=== PATIENT | male | born 1955 | race Caucasian/White ===

== ENCOUNTER → 2017-05-01 | Outpatient (CLI) | payer OTHER ==
[2017-05-01 17:36] LABS: HEMATOCRIT 43.8 % (42-52); MEAN CELL VOLUME 86.7 fL (80-100); MEAN CORPUSCULAR HEMOGLOBIN 30.7 pg (25-34); MEAN CORPUSCULAR HGB CONC 35.4 g/dl (32-36); MEAN PLATELET VOLUME 10.4 fL (7.4-10.4); PLATELET COUNT 228 K/uL (130-400); RED BLOOD COUNT 5.05 M/uL (4.7-6.1)
[2017-05-01 17:45] LABS: ALT/SGPT 39 U/L (12-78); BLOOD UREA NITROGEN 13 mg/dl (7-18); BUN/CREATININE RATIO 13.2 (10-20); CALCIUM 9.1 mg/dl (8.5-10.1); CARBON DIOXIDE 24 mmol/L (21-32); CHLORIDE 106 mmol/L (98-107); CHOLESTEROL 230 mg/dl (0-200); CREATININE 0.95 mg/dl (0.60-1.40); GLUCOSE 88 mg/dl (70-99); POTASSIUM 3.9 mmol/L (3.5-5.1); SODIUM 140 mmol/L (136-145)
[2017-05-01 17:50] LABS: ALKALINE PHOSPHATASE 94 U/L (45-117); AST/SGOT 38 U/L (15-37); CHOLESTEROL/HDL RATIO 3.1; HDL CHOLESTEROL 74 mg/dl; LDL CHOLESTEROL CALCULATED 141 mg/dl; TRIGLYCERIDES 74 mg/dl (0-150); VERY LOW DENSITY LIPOPROT CALC 15 mg/dl
== END | disposition home or self-care (01) ==
LOC: C.LAB1850 16:34
PROVIDERS: ATTEND Internal Medicine
DX: Z13.1 Encounter for screening for diabetes mellitus (principal); E80.4 Gilbert syndrome; R97.20 Elevated prostate specific antigen [PSA]; E78.5 Hyperlipidemia, unspecified; R51 Headache; Z11.59 Encounter for screening for other viral diseases

== ENCOUNTER → 2017-06-30 | Outpatient (CLI) | payer OTHER ==
[2017-06-30 17:04] LABS: PROSTATE SPECIFIC ANTIGEN 4.38 ng/ml (0.000-4.000)
== END | disposition home or self-care (01) ==
LOC: C.LAB1850 15:20
PROVIDERS: ATTEND Internal Medicine
DX: R97.20 Elevated prostate specific antigen [PSA] (principal); E80.4 Gilbert syndrome

== ENCOUNTER 2017-07-14 07:57 | Inpatient (IN) | payer OTHER ==
[2017-07-08 11:48] VITALS: BMI 27.0
[~2017-07-14] VITALS: Ht 182.9 cm; Wt 90.9 kg
--- NOTE | 2017-07-14 08:49 | Endo History and Physical ---
History & Physical Date of Service: Jul 14, 2017. Chief Complaint: History of polyps Referring Physician: History of Present Illness 61 yo CM who presents for colonoscopy secondary to history of colon polyps. Past Surgical History Hx Cardiac Surgery: No Hx Internal Defibrillator: No Hx Pacemaker: No Hx Abdominal Surgery: No Hx of Implantable Prosthesis: No Hx Post-Op Nausea and Vomiting: No Hx Cancer Surgery: No Hx Thoracic Surgery: No Hx Orthopedic: Yes (SHOULDER LIPOMA REMOVAL, LEFT HEEL SURGERY) Hx Urinary Tract Surgery: No Family History None Social History Smoking Status: Never Smoker Hx Substance Use: No Hx Alcohol Use: Yes (OCCASIONALLY) Allergies Coded Allergies: No Known Allergies (Unverified , 07/08/17) Current Medications Reported Home Medications Medications Dose Route/Sig Max Daily Dose Days Date Category No Active Prescriptions or Reported Medications Rx Vital Signs Weight (Kilograms): 90.91 Height (Feet): 6 Height (Inches): 0 Date Time Temp Pulse Resp B/P (MAP) Pulse Ox O2 Delivery O2 Flow Rate FiO2 07/14/17 08:20 36.7 67 16 131/89 (103) 97 Room Air Physical Exam General Appearance: WD/WN, no apparent distress Respiratory/Chest: Auscultation: breath sounds normal Cardiovascular: Heart Auscultation: RRR Abdomen: Bowel Sounds: normal Inspection & Palpation: soft, non-distended, no tenderness, guarding & rebound Assessment and Plan Assessment: 61 yo CM who presents for colonoscopy secondary to history of colon polyps. Plan: Proceed with colonoscopy.
--- NOTE | 2017-07-14 10:10 | Anesthesiology Progress Note ---
Anesthesia Post Op Note Date & Time Jul 14, 2017 at 10:09 Vital Signs Pain Intensity: 0 Vital Signs Past 12 Hours Date Time Temp Pulse Resp B/P (MAP) Pulse Ox O2 Delivery O2 Flow Rate FiO2 07/14/17 09:51 59 20 111/80 (90) 97 Room Air 07/14/17 08:20 36.7 67 16 131/89 (103) 97 Room Air Notes Mental Status: alert / awake / arousable, participated in evaluation Pt Amnestic to Procedure: Yes Nausea / Vomiting: adequately controlled Pain: adequately controlled Airway Patency, RR, SpO2: stable & adequate BP & HR: stable & adequate Hydration State: stable & adequate Anesthetic Complications: no major complications apparent Dr Roberts felt he may have had a small perforation - clips were placed on it and Dr Sommers aware - will be admitted for observation.
[2017-07-14] MEDS ORDERED: PIPERACILL/TAZOBAC IV 3.375 GM in DEXTROSE 5% 100ML 100 ML IV ONE (10:15)
[2017-07-14] MEDS ORDERED: PIPERACILL/TAZOBAC CONSULT ACTIVE PRN (10:15)
[2017-07-14] MEDS ORDERED: ONDANSETRON INJ 2 MG/ML 2 ML VIAL IV PRN (10:30)
--- NOTE | 2017-07-14 10:40 | History and Physical ---
History & Physical Date & Time of Service: Jul 14, 2017 at 10:31 Chief Complaint: Tubular Adenoma Of Colon, Beeper 755 Primary Care Physician: Marshal Nix M.D. History of Present Illness Source: patient, hospital records 61 yo male here for routine colonoscopy. Prep went well. Dr. Roberts was passing through sigmoid colon when he though he saw a shear in the mucosa. Retracted scope and confirmed that there appeared to be a small defect, perhaps 5mm. Three clips placed over area. As mentioned above, prep was very good, very little fecal material in colon and Dr. Roberts feels there was no spillage of fecal material. After procedure completed, patient without any abdominal pain. Abdomen softly distended, likely from insufflation from colonoscopy. CT scan ordered and Zosyn ordered. Dr. Roberts discussed with general surgery and they will follow patient. Patient pleasant and comfortable, laying in bed. No distress. No complaints. Reports that he has no real medical issues other than pre-glaucoma. Takes no medications. Past Medical/Surgical History Pre glaucoma Family History no cancer HTN Social History Smoking Status: Never Smoker Alcohol Use: socially Drug Use: none Occupational Status: employed Allergies Coded Allergies: No Known Allergies (Unverified , 07/08/17) Home Medications No Active Prescriptions or Reported Meds Review of Systems Constitutional: No fever, No chills, No sweats, No weight loss, No weakness, No fatigue, No problem reported Eyes: No worsening of vision, No eye pain, No redness, No discharge, No diplopia, No problem reported ENT: No hearing loss, No unusual epistaxis, No nasal symptoms, No sore throat, No tinnitus, No dental problems, No trouble swallowing, No problem reported Respiratory: No cough, No sputum, No wheezing, No shortness of breath, No dyspnea on exertion, No dyspnea at rest, No hemoptysis, No problem reported Cardiovascular: No chest pain, No orthopnea, No PND, No edema, No claudication , No palpitations, No problem reported Abdomen: No pain, No nausea, No vomiting, No diarrhea, No constipation, No GI bleeding, No problem reported Musculoskeletal: No joint pain, No muscle pain, No swelling, No calf pain, No problem reported Genitourinary - Male: No hematuria, No dysuria, No urinary frequency, No urinary urgency Neurologic: No memory loss, No paralysis, No weakness, No numbness/tingling, No vertigo, No balance problems, No problem reported Psychiatric: No depression symptoms, No anhedonism, No anxiety, No insomnia, No substance abuse, No problem reported Endocrine: No fatigue, No excessive thirst, No excessive urination, No problem reported Hematologic / Lymphatic: No abnormal bleeding/bruising, No clotting problems, No swollen lymph nodes, No night sweats, No problem reported Integumentary: No rash, No itch, No new/changing skin lesions, No color change , No bleeding, No problem reported Allergic / Immunologic: No environmental allergies, No seasonal allergies, No pet sensitivities, No food allergies, No hives, No frequent infections, No poor healing, No prolonged convalescence, No problem reported Physical Exam Vital Signs Date Time Temp Pulse Resp B/P (MAP) Pulse Ox O2 Delivery O2 Flow Rate FiO2 07/14/17 10:21 60 20 131/87 (102) 98 Room Air 07/14/17 10:06 69 20 123/82 (96) 97 Room Air 07/14/17 09:51 59 20 111/80 (90) 97 Room Air 07/14/17 08:20 36.7 67 16 131/89 (103) 97 Room Air General Appearance: WD/WN, no apparent distress Head: normocephalic, atraumatic Eyes: normal inspection, EOMI, sclerae normal ENT: normal ENT inspection, hearing grossly normal, pharynx normal Neck: supple, no adenopathy, no JVD, trachea midline Respiratory/Chest: chest non-tender, lungs clear, normal breath sounds, no respiratory distress, no accessory muscle use Cardiovascular: regular rate, rhythm, no edema, no gallop, no JVD, no murmur, normal peripheral pulses Abdomen/GI: normal bowel sounds, non tender, soft, no organomegaly, + distended (minimally) Back: normal inspection, no CVA tenderness, no muscle spasm, normal range of motion Extremities/Musculoskelatal: normal inspection, no calf tenderness, normal capillary refill, no pedal edema, normal range of motion, pelvis stable Neurologic/Psych: compliance spec II-XII nml as tested, no motor/sensory deficits, alert, normal mood/affect, normal reflexes, oriented x 3 Skin: normal color, warm/dry, no rash Diagnostics Diagnostic Radiology CT ABDOMEN PELVIS WITHOUT CONTRAST IMPRESSION: 1. Multiple extraluminal gas bubbles within the abdomen, consistent with a perforation 2. Surgical clip within the sigmoid colon. There is minimal infiltration of the adjacent pericolonic fat. There are no fluid collections to indicate an abscess. 3. The findings were reviewed with Dr. Justin Roberts at 10:52 AM. Impression Assessment and Plan 61 yo male with sigmoid colon perforation with immediate treatment with three endoscopic clips - Sigmoid colon perforation NPO, Cipro/Flagyl IV CT shows scattered air bubbles in the peritoneum consistent with perforation admit to surgical floor, q4 hour vitals, serial abdominal exams consult general surgery to follow along in case he requires surgical intervention NSS at 100cc/hr DVT prophylaxis: Lovenox no other medical issues Level of Care Med/Surg Resuscitation Status FULL RESUSCITATION VTE Prophylaxis VTE Risk Assessment Done? Y/N: Yes Risk Level: Low Given or contraindicated: Enoxaparin (Lovenox)SQ Additional Copies To Armando, Justin Cárdenas D.O.; Pro,Marshal Contreras M.D.
--- NOTE | 2017-07-14 10:56 | DIAGNOSTIC IMAGING REPORT ---
CT SCAN OF THE ABDOMEN AND PELVIS WITHOUT CONTRAST CLINICAL HISTORY: Abdominal pain status post colonoscopy. Possible perforation. Tubular adenoma of the colon. COMPARISON STUDY: No previous studies for comparison. TECHNIQUE: CT scan of the abdomen and pelvis was performed from the lung bases to the proximal femurs. Images are reviewed in the axial, sagittal, and coronal planes. IV contrast was not administered for this examination. A dose lowering technique was utilized adhering to the principles of ALARA. CT DOSE: 1018.11 mGycm FINDINGS: Lower chest: There are mild bibasal atelectatic changes. Liver: The unenhanced liver is normal in size, contour, and attenuation. There is no intrahepatic biliary ductal dilatation. Gallbladder: Unremarkable. Spleen: Normal in size and attenuation. Pancreas: Unremarkable. Adrenal glands: Unremarkable. Kidneys: No renal calculi are visualized. There is a to small to characterize 5 mm exophytic left renal hypodensity likely representing a cyst. Bowel: There is a surgical clip within the sigmoid colon. There is minimal inflammatory stranding within the adjacent fat. There are multiple extraluminal gas bubbles, consistent with perforation. Peritoneum: There are multiple extraluminal gas bubbles within the abdomen, consistent with a perforation. There is no significant free fluid. There is a tiny fat-containing umbilical hernia. Vasculature: The abdominal aorta is normal in course and caliber. There is a retroaortic left renal vein. Adenopathy: None. Pelvic viscera: The bladder, and pelvic viscera are unremarkable. Skeletal structures: No destructive osseous lesions are seen. IMPRESSION: 1. Multiple extraluminal gas bubbles within the abdomen, consistent with a perforation 2. Surgical clip within the sigmoid colon. There is minimal infiltration of the adjacent pericolonic fat. There are no fluid collections to indicate an abscess. 3. The findings were reviewed with Dr. Justin Roberts at 10:52 AM. Electronically signed by: Jean De León M.D. 07/14/2017 10:55 AM Dictated Date/Time: 07/14/2017 10:47 AM
[2017-07-14] MEDS ORDERED: LIDOCAINE HCL 2% 2 ML VIAL (20MG/ML) ONE (11:25)
[2017-07-14] MEDS ORDERED: PROPOFOL IV EMULSION 10 MG/ML 20 ML VIAL IV ONE (11:25)
--- NOTE | 2017-07-14 11:25 | GASTROINTESTINAL CONSULTATION ---
DATE OF CONSULTATION: 07/14/2017 AGE: 61 SEX: Male. RACE: . I had the pleasure of seeing Santino Gonzalez today in the GI lab for a colonoscopy secondary to history of polyps. He was brought to the endoscopy suite and underwent an attempt at colonoscopy. The colonoscopy was aborted with passage of the scope to the sigmoid colon and evidence of possible scope-induced trauma with perforation. Endoclips x3 were placed to the area. The scope was removed from the patient. He was started on IV Zosyn therapy. I immediately contacted both Dr. Washington and the hospitalist team to admit the patient as well as Dr. Sommers of general surgery to alert them to the possible need for surgical intervention. He was also sent for a stat CT scan and was noted to have evidence of multiple extraluminal gas bubbles within the abdomen consistent with a perforation. There was a surgical clip noted in the sigmoid colon and there was minimal infiltration of the adjacent pericolonic fat. He subsequently will be admitted for further evaluation. He will be kept n.p.o. PHYSICAL EXAMINATION: Includes: VITAL SIGNS: Temperature 36.7, pulse 52, respirations 20, blood pressure 137/83, pulse ox 98% on room air. GENERAL: He is awake, cooperative in no acute distress. HEAD: Normocephalic, atraumatic. EYES: Pupils equally round. Extraocular muscles are intact. ENT: External evaluation of ears and nose are normal. Oropharynx is clear. NECK: Soft, supple. No JVD or lymphadenopathy. CHEST: Clear to auscultation bilaterally. ABDOMEN: Mildly tender in the left lower quadrant. Nondistended. There are positive bowel sounds. There is no hepatosplenomegaly or stigmata of chronic liver disease. EXTREMITIES: No clubbing, cyanosis or edema. IMPRESSION: A 61-year-old male status post attempted colonoscopy with sigmoid colon perforation secondary to scope trauma. PLAN: At the present time, I would recommend the patient be kept n.p.o. He will be on Zosyn 3.375 grams IV q. 8 hours. He will be admitted to the hospitalist service and we will monitor his clinical course. Dr. Sommers is aware and once again, thanks for allowing me to participate in the care of this patient. If you have any further questions, please do not hesitate in contacting me.
[2017-07-14 11:30] VITALS: BP 126/83; PULSE 56; TEMP 36.4; O2SAT 98; Ht 182.9 cm; Wt 90.9 kg
--- NOTE | 2017-07-14 11:47 | Surgery Consultation ---
Consultation Date of Consultation: Jul 14, 2017. Attending Physician: Levar Washington D.O. Reason for Consultation: Iatrogenic colon injury History of Present Illness 61-year-old male admitted with iatrogenic sigmoid colon injury during routine screening colonoscopy. He was undergoing colonoscopy today and it was noted that there was mucosal injury in the sigmoid colon that appeared to be full- thickness and was approximate 5 mm in size. This was closed with clips and his colonoscopy was aborted. His colon was well prepped per the report. This was not at the site of a large polyp or concerning mass. The patient remained stable throughout the case, and he had a CT scan performed which showed some air along the course of the colon sigmoid area along with metallic clips. It was no evidence of any free fluid. The patient was examined up on the floor after he recovered. He denies any abdominal pain, fevers, nausea or vomiting. The patient is otherwise healthy and is not on any steroids for autoimmune drugs. Past Medical/Surgical History Medical Problems: (1) Abnormal colonoscopy (2) Colon perforation (3) No pertinent past medical history Past Surgical History: Denies Family History Noncontributory Social History Smoking Status: Never Smoker Smokeless Tobacco Use: No Alcohol Use: socially Drug Use: none Occupation Status: employed Allergies Coded Allergies: No Known Allergies (Unverified , 07/08/17) Home Medications No Active Prescriptions or Reported Meds Current Inpatient Medications Current Inpatient Medications Medications (Trade) Dose Ordered Sig/Ramon Route Start Time Stop Time Status Last Admin Dose Admin Enoxaparin Sodium (Lovenox Inj) 40 mg Q24H SQ 07/14/17 10:30 08/13/17 10:29 UNV Ondansetron HCl (Zofran Inj) 4 mg Q6H PRN IV 07/14/17 10:30 08/13/17 10:29 UNV Ciprofloxacin/ Dextrose 400 mg/ Prmx 200 ml @ 100 mls/hr Q12 IV 07/14/17 21:00 07/24/17 20:59 UNV Metronidazole 500 mg/Prmx 100 ml @ 100 mls/hr Q8H IV 07/14/17 10:30 07/24/17 10:29 UNV Review of Systems 10 point review of systems was negative except as above Physical Exam Date Time Temp Pulse Resp B/P (MAP) Pulse Ox O2 Delivery O2 Flow Rate FiO2 07/14/17 10:55 52 20 137/83 (101) 98 Room Air 07/14/17 10:46 53 20 128/87 (101) 98 Room Air 07/14/17 10:21 60 20 131/87 (102) 98 Room Air 07/14/17 10:06 69 20 123/82 (96) 97 Room Air 07/14/17 09:51 59 20 111/80 (90) 97 Room Air 07/14/17 08:20 36.7 67 16 131/89 (103) 97 Room Air General Appearance: WD/WN, no apparent distress Head: normocephalic, atraumatic Eyes: normal inspection, PERRL, EOMI ENT: normal ENT inspection, hearing grossly normal Neck: supple, no adenopathy Respiratory/Chest: chest non-tender, lungs clear, normal breath sounds, no respiratory distress, no accessory muscle use Cardiovascular: regular rate, rhythm, no edema, no murmur, normal peripheral pulses Abdomen/GI: normal bowel sounds, non tender, soft, no organomegaly Back: normal inspection Extremities/Musculoskelatal: normal inspection, no calf tenderness 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 Possible perforation. Tubular adenoma of the colon. COMPARISON STUDY: No previous studies for comparison. TECHNIQUE: CT scan of the abdomen and pelvis was performed from the lung bases to the proximal femurs. Images are reviewed in the axial, sagittal, and coronal planes. IV contrast was not administered for this examination. A dose lowering technique was utilized adhering to the principles of ALARA. CT DOSE: 1018.11 mGycm FINDINGS: Lower chest: There are mild bibasal atelectatic changes. Liver: The unenhanced liver is normal in size, contour, and attenuation. There is no intrahepatic biliary ductal dilatation. Gallbladder: Unremarkable. Spleen: Normal in size and attenuation. Pancreas: Unremarkable. Adrenal glands: Unremarkable. Kidneys: No renal calculi are visualized. There is a to small to characterize 5 mm exophytic left renal hypodensity likely representing a cyst. Bowel: There is a surgical clip within the sigmoid colon. There is minimal inflammatory stranding within the adjacent fat. There are multiple extraluminal gas bubbles, consistent with perforation. Peritoneum: There are multiple extraluminal gas bubbles within the abdomen, consistent with a perforation. There is no significant free fluid. There is a tiny fat-containing umbilical hernia. Vasculature: The abdominal aorta is normal in course and caliber. There is a retroaortic left renal vein. Adenopathy: None. Pelvic viscera: The bladder, and pelvic viscera are unremarkable. Skeletal structures: No destructive osseous lesions are seen. IMPRESSION: 1. Multiple extraluminal gas bubbles within the abdomen, consistent with a perforation 2. Surgical clip within the sigmoid colon. There is minimal infiltration of the adjacent pericolonic fat. There are no fluid collections to indicate an abscess. 3. The findings were reviewed with Dr. Justin Roberts at 10:52 AM. Assessment & Plan 61-year-old male with iatrogenic sigmoid colon injury, controlled with clips. He is currently stable with a soft abdomen. Agree with antibiotics and nothing by mouth for now. Surgery will follow, recommend serial abdominal exams. NPO, IV fluids Agree with IV Zosyn Serial abdominal exams Surgery will continue to follow, please call with questions, concerns, or if clinical condition deteriorates The plan of care was discussed with the patient, all questions were answered, the patient expressed understanding and agrees with the plan of care as stated
--- NOTE | 2017-07-14 12:00 | GI REPORT ---
Procedure Date: 07/14/2017 8:46 AM Procedure: Colonoscopy Indications: High risk colon cancer surveillance: Personal history of colonic polyps Medicines: Monitored Anesthesia Care Complications: Perforation Estimated Blood Loss: Estimated blood loss: none. Estimated blood loss was minimal. Procedure: Pre-Anesthesia Assessment: - Prior to the procedure, a History and Physical was performed, and patient medications and allergies were reviewed. The patient's tolerance of previous anesthesia was also reviewed. The risks and benefits of the procedure and the sedation options and risks were discussed with the patient. All questions were answered, and informed consent was obtained. Prior Anticoagulants: The patient has taken no previous anticoagulant or antiplatelet agents. ASA Grade Assessment: I - A normal, healthy patient. After reviewing the risks and benefits, the patient was deemed in satisfactory condition to undergo the procedure. After I obtained informed consent, the scope was passed under direct vision. Throughout the procedure, the patient's blood pressure, pulse, and oxygen saturations were monitored continuously. The On-site loaner was introduced through the anus with the intention of advancing to the ileum. The scope was advanced to the sigmoid colon before the procedure was aborted. Medications were given. The colonoscopy was technically difficult and complex due to restricted mobility of the colon and significant looping. The patient tolerated the procedure. The quality of the bowel preparation was good. No anatomical landmarks were photographed. Findings: A non-bleeding perforation was found in the sigmoid colon. This defect measured 3 mm in diameter. Adjacent mucosal findings include altered vascularity, erythema and friability (with contact bleeding). To repair the defect, the tissue edges were approximated and three hemostatic clips were successfully placed (MR conditional). Closure of the defect was successful. There was no bleeding at the end of the procedure. Impression: - A non-bleeding perforation was found in the sigmoid colon. The adjacent mucosa showed altered vascularity, erythema and friability (with contact bleeding). Clips (MR conditional) were placed. - No specimens collected. Recommendation: - Admit the patient to hospital [facility] for ongoing care. - NPO. - Zosyn (piperacillin tazobactam) 3.375 gm IV q 8 hr. - Perform a CT scan (computed tomography) of abdomen with contrast and pelvis with contrast today. Justin Roberts DO 07/14/2017 12:00:33 PM This report has been signed electronically. Note Initiated On: 07/14/2017 8:46 AM I attest to the content of the Intraoperative Record and orders documented therein, exceptions below
[2017-07-14 12:33] LABS: HEMATOCRIT 45.6 % (42-52); MEAN CELL VOLUME 86.7 fL (80-100); MEAN CORPUSCULAR HEMOGLOBIN 30.4 pg (25-34); MEAN CORPUSCULAR HGB CONC 35.1 g/dl (32-36); MEAN PLATELET VOLUME 10.4 fL (7.4-10.4); PLATELET COUNT 198 K/uL (130-400); RED BLOOD COUNT 5.26 M/uL (4.7-6.1); WHITE BLOOD COUNT 5.23 K/uL (4.8-10.8)
[2017-07-14 12:52] LABS: CREATININE 0.83 mg/dl (0.60-1.40)
[2017-07-14] MEDS: METRONIDAZOLE / NSS 500 MG in PREMIXED NSS 100 ML IV SCH ×2 (13:20→20:52)
[2017-07-14] MEDS: SODIUM CHLORIDE 0.9% 1000ML 1,000 ML IV SCH (13:21)
[2017-07-14 15:13] VITALS: BP 126/78; PULSE 55; TEMP 36.6; O2SAT 96
[2017-07-14] MEDS ORDERED: PIPERACILL/TAZOBAC IV 3.375 GM in DEXTROSE 5% 100ML 100 ML IV SCH (16:00)
[2017-07-14 19:24] VITALS: BP 122/77; PULSE 68; TEMP 36.8; O2SAT 96
[2017-07-14] MEDS ORDERED: ENOXAPARIN 40 MG/0.4 ML SYR SQ SCH (20:00)
[2017-07-14] MEDS: CIPROFLOXACIN / D5W 400 MG in PREMIXED IN D5W 200 ML IV SCH (21:54)
[2017-07-14 23:17] VITALS: BP 109/65; PULSE 68; TEMP 36.5; O2SAT 93
[2017-07-15] MEDS: SODIUM CHLORIDE 0.9% 1000ML 1,000 ML IV SCH ×2 (02:57→13:15)
[2017-07-15] MEDS: METRONIDAZOLE / NSS 500 MG in PREMIXED NSS 100 ML IV SCH ×2 (03:39→12:00)
[2017-07-15] MEDS ORDERED: NURSING VERBAL MED ORDER ONE (04:00)
[2017-07-15 07:46] VITALS: BP 130/76; PULSE 64; TEMP 36.6; O2SAT 96
[2017-07-15 08:13] VITALS: O2SAT 96
--- NOTE | 2017-07-15 09:08 | Surgery Progress Note ---
Surgery Progress Note Date of Service Jul 15, 2017. Subjective + feeling well, + ambulating, No complaints, No nausea, No vomiting Patient sitting up in bed upon entering room- no new concerns or complaints. Objective Vital Signs: Date Time Temp Pulse Resp B/P (MAP) Pulse Ox O2 Delivery O2 Flow Rate FiO2 07/15/17 00:15 Room Air 07/14/17 23:17 36.5 68 18 109/65 (80) 93 Room Air 07/14/17 19:24 36.8 68 18 122/77 (92) 96 Room Air 07/14/17 18:00 Room Air 07/14/17 15:13 36.6 55 18 126/78 (94) 96 Room Air 07/14/17 11:30 36.4 56 18 126/83 98 Room Air 07/14/17 10:55 52 20 137/83 (101) 98 Room Air 07/14/17 10:46 53 20 128/87 (101) 98 Room Air 07/14/17 10:21 60 20 131/87 (102) 98 Room Air 07/14/17 10:06 69 20 123/82 (96) 97 Room Air 07/14/17 09:51 59 20 111/80 (90) 97 Room Air 07/14/17 08:20 36.7 67 16 131/89 (103) 97 Room Air General Appearance: WD/WN, no apparent distress Head: normocephalic, atraumatic Respiratory/Chest: no respiratory distress, no accessory muscle use Abdomen: normal bowel sounds, non tender, non distended, soft Laboratory Results: Results Past 24 Hours Test 07/14/17 12:00 Range/Units White Blood Count 5.23 4.8-10.8 K/uL Red Blood Count 5.26 4.7-6.1 M/uL Hemoglobin 16.0 14.0-18.0 g/dL Hematocrit 45.6 42-52 % Mean Corpuscular Volume 86.7 80-100 fL Mean Corpuscular Hemoglobin 30.4 25-34 pg Mean Corpuscular Hemoglobin Concent 35.1 32-36 g/dl RDW Standard Deviation 41.6 36.4-46.3 fL RDW Coefficient of Variation 13.2 11.5-14.5 % Platelet Count 198 130-400 K/uL Mean Platelet Volume 10.4 7.4-10.4 fL Prothrombin Time 11.0 9.0-12.0 SECONDS Prothromb Time International Ratio 1.0 0.9-1.1 Activated Partial Thromboplast Time 25.7 21.0-31.0 SECONDS Partial Thromboplastin Ratio 1.0 Creatinine 0.83 0.60-1.40 mg/dl Est Creatinine Clear Calc Drug Dose 103.9 ml/min Estimated GFR () 110.8 Estimated GFR (Non- 95.6 Assessment & Plan 61-year-old male 1 day s/p Attempted Colonoscopy with Iatrogenic colon injury, controlled with clips. No new issues or concerns overnight. Patient continues to deny abdominal pain or discomfort. Benign abdominal exam. AM labs reviewed- WBC within normal limits. Will advance diet to clear liquids and see how he tolerates. If tolerating diet, ok to discharge from surgical standpoint. Discharge per medicine service. IV antibiotics on board. Will need to continue outpatient antibiotics. Patient seen with Dr. Kramer- provided verbal outpatient diet recommendations- recommend low fiber diet for next 1-2 weeks.
[2017-07-15] MEDS: CIPROFLOXACIN / D5W 400 MG in PREMIXED IN D5W 200 ML IV SCH (09:23)
[2017-07-15] MEDS ORDERED: CIPR-255 PO (10:19)
[2017-07-15] MEDS ORDERED: METR-163 PO (10:19)
--- NOTE | 2017-07-15 10:22 | Discharge Instructions ---
Discharge Instructions Date of Service Jul 15, 2017. Admission Reason for Admission: Abnormal Colonoscopy, Colon Perforation Discharge Discharge Diagnosis / Problem: Abnormal colonoscopy, sigmoid tear Discharge Goals Goal(s): Decrease discomfort, Improve function, Increase independence, Improve disease control, Learn about illness, Diagnostic testing, Therapeutic intervention, Prevent Disease Progression Activity Recommendations Activity Limitations: resume your previous activity Exercise/Sports Limitations: as tolerated . Instructions / Follow-Up Instructions / Follow-Up Patient to be discharged home Please resume two antibiotics on discharge: (prescriptions sent electronically) cipro 500 mg tablet twice a day for 7 more days flagyl 500 mg tablet three times a day for 7 more days If worsening abdominal pain, fevers, please report to ER Follow up with Dr. Nix in 1-2 weeks Current Hospital Diet Patient's current hospital diet: Clear Liquid Diet Discharge Diet Recommended Diet: Regular Diet Procedures Procedures Performed: Colonoscopy Pending Studies Studies pending at discharge: no Laboratory Results Lipid Panel Test 05/01/17 16:36 Range/Units Triglycerides Level 74 0-150 mg/dl Cholesterol Level 230 H 0-200 mg/dl HDL Cholesterol 74 mg/dl Cholesterol/HDL Ratio 3.1 LDL Cholesterol, Calculated 141 mg/dl Medical Emergencies . Who to Call and When: Medical Emergencies: If at any time you feel your situation is an emergency, please call 911 immediately. . Non-Emergent Contact Non-Emergency issues call your: Primary Care Provider Call Non-Emergent contact if: you have a fever, your pain is worsening . . "Provider Documentation" section prepared by Jigar Carpio. . VTE Core Measure Inpt VTE Proph given/why not?: Enoxaparin (Lovenox)SQ
--- NOTE | 2017-07-15 10:29 | GASTROENTEROLOGY PROGRESS NOTE ---
DATE: 07/15/2017 AGE: 61 SEX: Male. RACE: . SUBJECTIVE: I had the pleasure of seeing Santino Gonzalez at his bedside today. He was sitting up in bed without complaints. He denied any fevers, chills, nausea, vomiting, hematemesis, melena, hematochezia, or abdominal pain. He does state that he is hungry. He is passing gas, but has not had a bowel movement. He denies any further complaints. PHYSICAL EXAMINATION: VITAL SIGNS: Temperature 36.7, pulse 59, respirations 20, blood pressure 111/80, pulse ox 97% on room air. GENERAL: He is awake, cooperative in no acute distress. HEAD: Normocephalic, atraumatic. EYES: Pupils equally round. Extraocular muscles are intact. ENT: External evaluation of ears and nose are normal. Oropharynx is clear. NECK: Soft and supple. There is no JVD or lymphadenopathy. CHEST: Clear to auscultation bilaterally. CARDIOVASCULAR SYSTEM: Regular rate and rhythm. ABDOMEN: Soft, nontender, nondistended. Positive bowel sounds. EXTREMITIES: No clubbing, cyanosis, or edema. LABORATORY STUDIES: Reviewed from yesterday including white blood cell count of 5.23. IMPRESSION: A 61-year-old male who underwent a colonoscopy yesterday and had perforation secondary to scope trauma with endoscopic repair via endoclip therapy x3. PLAN: I would recommend that the patient receive a 10-day course of Cipro and Flagyl therapy with Cipro 500 mg p.o. b.i.d. and Flagyl 500 mg p.o. t.i.d. He was told to advance his diet slowly with clear liquids today followed by a low fiber diet for the next 1-2 weeks. I instructed him if he has any complaints including fevers, chills, nausea, vomiting or abdominal pain, he should contact our office or report to the Emergency Room immediately. He understood the plan and agreed with this. From a GI standpoint, I believe that the patient could go home today without any further intervention needed at this time. I appreciate surgery's input and I instructed the patient to follow up in our office in 2 weeks. Once again, thanks for allowing me to participate in the care of this patient. If you have any further questions, please do not hesitate in contacting me.
[2017-07-15 10:42] VITALS: BP 130/76; PULSE 64; TEMP 36.6; O2SAT 96
[2017-07-15 11:40] VITALS: BP 140/80; PULSE 74; TEMP 36.9; O2SAT 97
--- NOTE | 2017-07-15 13:05 | Anesthesiology Progress Note ---
Anesthesia Post Op Note Date & Time Jul 15, 2017 at 13:04 Vital Signs Pain Intensity: 0.0 Vital Signs Past 12 Hours Date Time Temp Pulse Resp B/P (MAP) Pulse Ox O2 Delivery O2 Flow Rate FiO2 07/15/17 11:40 36.9 74 14 140/80 (100) 97 Room Air 07/15/17 10:42 36.6 64 16 96 Room Air 07/15/17 08:13 96 Room Air 07/15/17 07:46 36.6 64 16 130/76 (94) 96 Room Air 07/15/17 07:30 Room Air Notes Mental Status: alert / awake / arousable, participated in evaluation Pt Amnestic to Procedure: Yes Nausea / Vomiting: adequately controlled Pain: adequately controlled Airway Patency, RR, SpO2: stable & adequate BP & HR: stable & adequate Hydration State: stable & adequate Anesthetic Complications: no major complications apparent
--- NOTE | 2017-07-15 13:31 | Discharge Summary ---
Discharge Summary Date of Service Jul 15, 2017. Discharge Summary Admission Date: Jul 14, 2017 at 10:24 Discharge Date: Jul 15, 2017 Discharge Disposition: Home Principal Diagnosis: Colon perforation Procedures: Colonoscopy Consultations: General surgery GI Medication Reconciliation New Medications: Ciprofloxacin Hcl (Cipro) 500 Mg Tab 500 MG PO BID for 7 Days, #14 TAB Metronidazole (Flagyl) 500 Mg Tab 500 MG PO TID for 7 Days, #21 TAB Discharge Exam Review of Systems: Constitutional: No fever, No chills, No sweats, No weakness Eyes: No worsening of vision, No eye pain, No redness, No discharge ENT: No hearing loss, No unusual epistaxis, No nasal symptoms, No sore throat Respiratory: No cough, No sputum, No wheezing, No shortness of breath Cardiovascular: No chest pain, No orthopnea, No PND, No edema Abdomen: No pain, No nausea, No vomiting, No diarrhea Musculoskeletal: No joint pain, No muscle pain, No swelling, No calf pain Genitourinary - Male: No hematuria, No dysuria, No urinary frequency, No urinary urgency Neurologic: No memory loss, No paralysis, No weakness, No numbness/tingling Psychiatric: No depression symptoms, No anhedonism, No anxiety, No insomnia Endocrine: No fatigue, No excessive thirst, No excessive urination Integumentary: No rash, No itch Physical Exam: General Appearance: WD/WN, no apparent distress Eyes: normal inspection, PERRL, EOMI, sclerae normal Neck: supple, no adenopathy, thyroid normal, no JVD Respiratory/Chest: chest non-tender, lungs clear, normal breath sounds, no respiratory distress Cardiovascular: regular rate, rhythm, no edema, no gallop, no JVD Abdomen / GI: normal bowel sounds, non tender, soft, no organomegaly Extremities: normal inspection, no calf tenderness, normal capillary refill , no pedal edema Neurologic/Psychiatric: 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, no motor/sensory deficits , alert, normal mood/affect, oriented x 3 Skin: normal color, warm/dry, no rash Lymphatic: no adenopathy Hospital Course 61 yo male with sigmoid colon perforation with immediate treatment with three endoscopic clips - Sigmoid colon perforation noted on colonoscopy, CT abd/pelvis determined scattered air bubbles in the peritoneum consistent with perforation No distress noted Started on IV cipro and flagyl Consulted general surgery, recs to advance diet and OK for discharge Discharge on cipro 500 mg PO BID and flagyl 500 mg PO TID for 7 more days Will f/u wt PCP in 1-2 weeks DVT prophylaxis: Lovenox no other medical issues Total Time Spent: Greater than 30 minutes This includes examination of the patient, discharge planning, medication reconciliation, and communication with other providers. Discharge Instructions Please refer to the electronic Patient Visit Report (Discharge Instructions) for additional information. Additional Copies To ,Marshal Contreras M.D.
== END 2017-07-15 14:30 | disposition home or self-care (01) | DRG 331 ==
LOC: C.GI 07:57 → C.MSN 10:24 → ENRESERV 10:43
PROVIDERS: ADMIT Internal Medicine; ATTEND Hospitalist
PROC: 0DQN8ZZ Repair Sigmoid Colon, Via Natural or Artificial Opening Endoscopic (ICD-10-PCS; principal; 2017-07-14 08:55)
DX: S36.533A Laceration of sigmoid colon, initial encounter (principal); Y84.8 Other medical procedures as the cause of abnormal reaction of the patient, or of later complication, without mention of misadventure at the time of the procedure; Y92.530 Ambulatory surgery center as the place of occurrence of the external cause; Y95 Nosocomial condition; H40.009 Preglaucoma, unspecified, unspecified eye; Z86.010 Personal history of colon polyps; Z82.49 Family history of ischemic heart disease and other diseases of the circulatory system